=== PATIENT | male | born 1970 | race Caucasian/White ===

== ENCOUNTER 2019-04-02 15:38 | Observation (INO) ==
[2019-04-02 16:18] LABS: Basophils % 0.1 %; Hematocrit 43.4 % (37.5-50.1); Hemoglobin 14.2 g/dL (12.9-16.9); Immature Granulocytes % 0.3 % (0-4); Lymphocytes % 7.6 %; Mean Corpuscular HGB Conc 32.7 g/dL (31.6-35.5); Mean Corpuscular Hemoglobin 30.1 pg (28.0-33.3); Mean Corpuscular Volume 91.9 fL (83.0-100.0); Mean Platelet Volume 9.2 fL (9.4-12.4); Monocytes # 0.5 K/mcL (0.0-1.3); Monocytes % 3.4 %; Neutrophils # 11.8 K/mcL (1.6-8.9); Platelet Count 264 K/mcL (140-400); Red Blood Count 4.72 M/mcL (4.19-5.50); Segmented Neutrophils % 88.6 %; White Blood Count 13.3 K/mcL (4.3-11.1)
[2019-04-02 16:19] LABS: Bacteria,Urine None Seen per hpf (None-Few); Bilirubin,Urine Negative (Negative); Blood,Urine Negative (Negative); Clarity,Urine Clear (Clear); Color,Urine Yellow (Yellow); Glucose,Urine (UA) Normal (Normal); Hyaline Casts,Urine None Seen per lpf (None-Few); Ketones,Urine Trace mg/dL (Negative); Leukocyte Esterase,Urine Trace (Negative); Nitrite,Urine Negative (Negative); PH,Urine 6.5 pH Units (5.0-8.0); Protein,Urine Trace mg/dL (Neg-Trace); Specific Gravity,Urine 1.026 (1.010-1.025); Squamous Epithelial Cell,Urine Many per lpf (None-Few); Urobilinogen,Urine Normal (Normal)
[2019-04-02 16:37] LABS: BUN/Creatinine Ratio 12 (6-26); Blood Urea Nitrogen 16 mg/dL (6-20); Carbon Dioxide 24 mEq/L (23-29); Chloride 107 mEq/L (98-107); Glucose 130 mg/dL (70-105); Osmolality,Calculated 293 (280-300); Potassium 4.3 mEq/L (3.5-5.1); Sodium 140 mEq/L (136-145); eGFR For African Americans > 60 (> 60); eGFR For Non-African Americans 57 (> 60)
[2019-04-02] MEDS ORDERED: 0.9 % Sodium Chloride 1,000 ML IVC ONE (19:07)
[2019-04-02] MEDS ORDERED: Ketorolac 15 MG/ML VIAL IVP ONE (19:18)
[2019-04-02] MEDS ORDERED: Ondansetron 4 MG/2 ML VIAL IVP ONE (19:18)
[2019-04-02 19:47] LABS: Basophils % 0.2 %; Hematocrit 42.1 % (37.5-50.1); Hemoglobin 14.4 g/dL (12.9-16.9); Immature Granulocytes % 0.4 % (0-4); Lymphocytes % 7.5 %; Mean Corpuscular HGB Conc 34.2 g/dL (31.6-35.5); Mean Corpuscular Hemoglobin 30.2 pg (28.0-33.3); Mean Corpuscular Volume 88.3 fL (83.0-100.0); Mean Platelet Volume 9.2 fL (9.4-12.4); Monocytes # 0.5 K/mcL (0.0-1.3); Monocytes % 3.9 %; Neutrophils # 11.7 K/mcL (1.6-8.9); Platelet Count 262 K/mcL (140-400); Red Blood Count 4.77 M/mcL (4.19-5.50); Red Cell Distribution Width 13.2 % (11.5-14.5); White Blood Count 13.3 K/mcL (4.3-11.1)
[2019-04-02 20:10] LABS: Alanine Aminotransferase 31 Units/L (7-52); Albumin 4.8 g/dL (3.5-5.7); Albumin/Globulin Ratio 1.9 (1.1-2.2); Alkaline Phosphatase 86 Units/L (34-104); Amylase 37 Units/L (29-103); Aspartate Amino Transferase 19 Units/L (13-39); BUN/Creatinine Ratio 12 (6-26); Bilirubin,Direct 0.1 mg/dL (0.0-0.2); Bilirubin,Indirect 0.4 mg/dL (0.0-1.0); Bilirubin,Total 0.5 mg/dL (0.3-1.0); Blood Urea Nitrogen 17 mg/dL (6-20); Calcium 9.8 mg/dL (8.6-10.3); Carbon Dioxide 24 mEq/L (23-29); Chloride 107 mEq/L (98-107); Globulin 2.5 g/dL (2.4-3.5); Glucose 126 mg/dL (70-105); Lipase 22 Units/L (11-82); Osmolality,Calculated 295 (280-300); Sodium 141 mEq/L (136-145); Total Protein 7.3 g/dL (6.4-8.9); Troponin I < 0.03 ng/mL (< 0.04); eGFR For African Americans > 60 (> 60); eGFR For Non-African Americans 52 (> 60)
[2019-04-02] MEDS ORDERED: Morphine Sulfate 2 MG/ML SYRINGE IVP PRN (20:18)
[2019-04-03] MEDS ORDERED: 0.9 % Sodium Chloride 1,000 ML IVC ONE (02:33)
[2019-04-03] MEDS ORDERED: Naloxone 0.4 MG/ML INJ IVP PRN ×2 (04:46→23:54)
[2019-04-03] MEDS: Ketorolac 15 MG/ML VIAL IVP PRN ×3 (05:40→18:56)
[2019-04-03 10:04] LABS: Hematocrit 35.8 % (37.5-50.1); Mean Corpuscular Hemoglobin 29.5 pg (28.0-33.3); Mean Corpuscular Volume 89.5 fL (83.0-100.0); Mean Platelet Volume 9.3 fL (9.4-12.4); Platelet Count 214 K/mcL (140-400); Red Cell Distribution Width 13.3 % (11.5-14.5); White Blood Count 10.5 K/mcL (4.3-11.1)
[2019-04-03 10:08] LABS: Hemoglobin 11.8 g/dL (12.9-16.9)
[2019-04-03] MEDS ORDERED: cefTRIAXone 1,000 MG in 0.9 % Sodium Chloride Mini Bag 100 ML IVPB ONE (10:09)
[2019-04-03 10:11] LABS: Calcium 8.4 mg/dL (8.6-10.3); Potassium 3.9 mEq/L (3.5-5.1)
[2019-04-03] MEDS ORDERED: *HR* Midazolam HCl 2 MG/2 ML VIAL ONE (20:09)
[2019-04-03] MEDS ORDERED: Lidocaine -MPF 2% 2 ML VIAL ONE (20:09)
[2019-04-03] MEDS ORDERED: *HR* Propofol 200 MG/20 ML VIAL IVP ONE (20:09)
[2019-04-03] MEDS ORDERED: *HR* FentaNYL (PF) 100 MCG/2 ML VIAL ONE (20:09)
[2019-04-03] MEDS ORDERED: Acetaminophen IV 1,000 MG/100 ML INFUS..BTL ONE (20:56)
[2019-04-03] MEDS ORDERED: Famotidine 20 MG/2 ML VIAL ONE (20:57)
[2019-04-03] MEDS ORDERED: Isovue-300 50ML VIAL ONE (20:59)
[2019-04-03] MEDS ORDERED: Ketorolac 15 MG/ML VIAL IVP PRN (23:54)
[2019-04-04 00:27] VITALS: BP 139/88
== END 2019-04-04 01:12 | disposition home or self-care (01) ==
LOC: EMEROOARM 15:38 → 2ANU 15:38 → SUATTDRO 21:24 → 2ANU 22:24
PROVIDERS: ADMIT Internal Medicine; ATTEND Internal Medicine

== ENCOUNTER 2021-11-02 05:18 | Inpatient (IN) ==
[2021-11-02 05:53] LABS: Bilirubin,Urine Negative (Negative); Blood,Urine Large (Negative); Clarity,Urine Ex.Turbid (Clear); Color,Urine Light-Orange (Yellow); Glucose,Urine (UA) Normal (Normal); Ketones,Urine Negative (Negative); Leukocyte Esterase,Urine Large (Negative); Nitrite,Urine Negative (Negative); Protein,Urine 200 mg/dL (Neg-Trace); RBC,Urine TNTC per hpf (0-3); Specific Gravity,Urine 1.022 (1.010-1.025); Squamous Epithelial Cell,Urine Few per hpf (None-Few); Urobilinogen,Urine Normal (Normal); WBC,Urine TNTC per hpf (0-3)
[2021-11-02] MEDS ORDERED: 0.9 % Sodium Chloride 1,000 ML IVC ONE (05:53)
[2021-11-02] MEDS ORDERED: Ondansetron 4 MG/2 ML VIAL IVP ONE (05:53)
[2021-11-02] MEDS ORDERED: Ketorolac 30 MG/ML VIAL IVP ONE (05:54)
[2021-11-02] MEDS ORDERED: Morphine Sulfate 2 MG/ML SYRINGE IVP ONE (05:54)
[2021-11-02 05:58] LABS: Basophils % 0.2 %; Eosinophils % 0.1 %; Hematocrit 41.6 % (37.5-50.1); Hemoglobin 13.2 g/dL (12.9-16.9); Immature Granulocytes % 0.2 % (0-4); Lymphocytes # 0.8 K/mcL (0.6-4.6); Lymphocytes % 7.7 %; Mean Corpuscular HGB Conc 31.7 g/dL (31.6-35.5); Mean Corpuscular Hemoglobin 28.9 pg (28.0-33.3); Mean Platelet Volume 9.3 fL (9.4-12.4); Monocytes # 0.2 K/mcL (0.0-1.3); Monocytes % 2.3 %; Neutrophils # 9.5 K/mcL (1.6-8.9); Platelet Count 293 K/mcL (140-400); Red Blood Count 4.57 M/mcL (4.19-5.50); Red Cell Distribution Width 12.4 % (11.5-14.5); Segmented Neutrophils % 89.5 %; White Blood Count 10.6 K/mcL (4.3-11.1)
[2021-11-02] MEDS ORDERED: Famotidine 20 MG/2 ML VIAL IVP ONE ×2 (06:00→10:23)
[2021-11-02 06:14] LABS: Albumin 4.7 g/dL (3.5-5.7); Albumin/Globulin Ratio 1.4 (1.1-2.2); Bilirubin,Direct 0.1 mg/dL (0.0-0.2); Bilirubin,Indirect 0.3 mg/dL (0.0-1.0); Bilirubin,Total 0.4 mg/dL (0.3-1.0); Globulin 3.3 g/dL (2.4-3.5); Potassium 5.3 mEq/L (3.5-5.1)
[2021-11-02] MEDS ORDERED: Calcium Gluconate 1gm/50mL 1 GM/50 ML BAG IVPB ONE (06:40)
[2021-11-02] MEDS ORDERED: cefTRIAXone 1,000 MG in Water for inj. (sterile) 10 ML IVP ONE (06:58)
[2021-11-02] MEDS ORDERED: Ondansetron 4 MG/2 ML VIAL IVP PRN ×4 (07:56→10:23)
[2021-11-02] MEDS ORDERED: *HR* FentaNYL (PF) 100 MCG/2 ML VIAL IVP PRN (07:56)
[2021-11-02] MEDS ORDERED: Albuterol 2.5 MG/3 ML NEBULIZER IH PRN ×2 (07:56→10:23)
[2021-11-02] MEDS ORDERED: Naloxone 0.4 MG/ML INJ IVP PRN ×3 (07:56→10:23)
[2021-11-02] MEDS ORDERED: Acetaminophen IV 1,000 MG/100 ML BAG IVPB ONE (07:56)
[2021-11-02] MEDS ORDERED: Nitroglycerin 0.4 MG TAB.SUBL SL PRN ×2 (07:56→10:23)
[2021-11-02] MEDS ORDERED: Melatonin 3 MG TABLET PO PRN ×2 (08:00→10:23)
[2021-11-02] MEDS ORDERED: *HR* Propofol 200 MG/20 ML VIAL IVP ONE (08:12)
[2021-11-02] MEDS ORDERED: *HR* Midazolam HCl 2 MG/2 ML VIAL ONE (08:12)
[2021-11-02] MEDS ORDERED: Lidocaine -MPF 2% 5 ML VIAL ONE (08:12)
[2021-11-02] MEDS ORDERED: Nicotine 2 MG GUM BC PRN ×2 (08:13→10:23)
[2021-11-02] MEDS ORDERED: Acetaminophen 325 MG TABLET PO PRN (08:14)
[2021-11-02] MEDS ORDERED: Ringers Solution, Lactated 1,000 ML IVC SCH ×2 (08:15→18:15)
[2021-11-02 08:22] LABS: Magnesium 1.9 mg/dL (1.6-2.6); Phosphorous 3.9 mg/dL (2.7-4.5)
[2021-11-02] MEDS ORDERED: Iopamidol - 300 50 ML VIAL ONE (08:32)
[2021-11-02] MEDS ORDERED: *HR* Rocuronium Bromide 50 MG/5 ML VIAL ONE (08:38)
[2021-11-02] MEDS ORDERED: Ketamine HCL *QUVA* 50mg (1mL) SYRINGE ONE (08:39)
[2021-11-02] MEDS ORDERED: Lidocaine HCL 4 ML Topical Solution (Laryng-O-Jet Kit Sterile Pak) TP ONE (08:42)
[2021-11-02] MEDS ORDERED: Nicotine 14 MG PATCH.TD24 TD SCH (09:00)
[2021-11-02] MEDS: Ringers Solution, Lactated 1,000 ML IVC SCH ×3 (10:52→22:37)
[2021-11-02 16:40] LABS: Calcium 8.5 mg/dL (8.6-10.3); Potassium 4.3 mEq/L (3.5-5.1)
[2021-11-02] MEDS: Acetaminophen 325 MG TABLET PO PRN (18:33)
[2021-11-03] MEDS: Ringers Solution, Lactated 1,000 ML IVC SCH ×2 (03:10→18:11)
[2021-11-03 06:21] LABS: Calcium 8.4 mg/dL (8.6-10.3); Phosphorous 3.7 mg/dL (2.7-4.5); Potassium 4.8 mEq/L (3.5-5.1)
[2021-11-03] MEDS: Acetaminophen 325 MG TABLET PO PRN (08:31)
[2021-11-03] MEDS: Nicotine 14 MG PATCH.TD24 TD SCH (08:31)
[2021-11-03 17:20] LABS: Calcium 9.1 mg/dL (8.6-10.3); Potassium 4.3 mEq/L (3.5-5.1)
[2021-11-04] MEDS: Ringers Solution, Lactated 1,000 ML IVC SCH ×2 (02:02→04:42)
[2021-11-04 03:22] LABS: Basophils # 0.1 K/mcL (0.0-0.2); Basophils % 0.8 %; Eosinophils # 0.3 K/mcL (0.0-0.6); Eosinophils % 4.4 %; Hematocrit 30.9 % (37.5-50.1); Immature Granulocytes % 0.2 % (0-4); Lymphocytes # 2.6 K/mcL (0.6-4.6); Lymphocytes % 39.3 %; Mean Corpuscular HGB Conc 32.4 g/dL (31.6-35.5); Mean Corpuscular Hemoglobin 29.7 pg (28.0-33.3); Mean Corpuscular Volume 91.7 fL (83.0-100.0); Mean Platelet Volume 9.5 fL (9.4-12.4); Monocytes # 0.4 K/mcL (0.0-1.3); Monocytes % 5.8 %; Neutrophils # 3.2 K/mcL (1.6-8.9); Platelet Count 222 K/mcL (140-400); Red Blood Count 3.37 M/mcL (4.19-5.50); Red Cell Distribution Width 12.6 % (11.5-14.5); Segmented Neutrophils % 49.5 %; White Blood Count 6.5 K/mcL (4.3-11.1)
[2021-11-04 03:45] LABS: Calcium 8.2 mg/dL (8.6-10.3); Potassium 3.8 mEq/L (3.5-5.1)
[2021-11-04 07:37] VITALS: BP 150/87; PULSE 79; TEMP 98.2; O2SAT 95
[2021-11-04] MEDS: Nicotine 14 MG PATCH.TD24 TD SCH (10:34)
== END 2021-11-04 13:19 | disposition home or self-care (01) | DRG 660 ==
LOC: EMEROOARM 05:18 → 2ANU 05:18 → SUATTDRO 06:59 → 2ANU 07:55 → SUATTDRO 08:00
PROVIDERS: ADMIT Internal Medicine; ATTEND Pharmacist